=== PATIENT | male | born 1955 | race Caucasian/White ===

== ENCOUNTER 2025-02-22 12:26 | Inpatient (IN) | payer MEDICARE, SELFPAY ==
[2025-02-22] VITALS (8 sets, daily range): BP systolic 108–133; BP diastolic 68–85; PULSE 59–71; RESP 14–18; TEMP 36.2–36.7; O2SAT 95–100; BMI 24.4; BMI 23.8
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
[2025-02-22 13:15] LABS: Absolute Lymphocyte Count 2.36 X10^3/uL (0.83-4.51); Absolute Neutrophil Count 6.4 X10^3/uL (2.0-7.7); Basophil# 0.09 X10^3/uL; Basophil% 0.9 % (0-1); Eosinophil# 0.05 X10^3/uL; Eosinophils% 0.5 % (0-5); Hemoglobin 15.4 g/dL (13.0-16.5); Lymphocyte # 2.36 X10^3/ul (0.83-4.51); Lymphocyte % 24.3 % (19-41); Mean Corp Hgb Conc 34.2 g/dL (32-36); Mean Corpuscular Hgb 31.8 pg (27.0-32.0); Mean Corpuscular Volume 92.8 fL (80-94); Mean Platelet Vol. 11.8 fl (6.2-12.0); Monocyte# 0.83 X10^3/uL; Monocyte% 8.6 % (0-10); NRBC Flagged by Analyzer 0 % (0-5); Neutrophil # 6.35 X10^3/uL (2.7-7.7); Neutrophil % 65.5 % (47-70); Platelet Count 235 K/mm3 (150-450); RBC Distribution Width CV 13.7 % (11.6-14.6); RBC Distribution Width SD 46.7 fl (35.1-43.9); Red Blood Count 4.85 M/mm3 (4.6-6.2); White Blood Count 9.7 K/mm3 (4.4-11.0)
[2025-02-22 13:31] LABS: Prothrombin Time (Protime)PT. 13.2 SECONDS (11.7-14.9)
[2025-02-22 13:33] LABS: ALB/GLOB Ratio 1.7 RATIO (0.9-2.4); AST(SGOT) 19 U/L (<=37); Alanine Aminotransfer ALT/SGPT 16 U/L (<=46); Albumin, Serum 4.2 g/dL (3.4-4.8); Alkaline Phosphatase 54 U/L (40-129); Anion Gap 11 (5-15); BUN 13 mg/dL (4-19); BUN/Creat Ratio 15.6 RATIO (10-20); Carbon Dioxide 25.5 mmol/L (21.0-32.0); Chloride 104 mmol/L (98-108); Creatinine, Serum 0.85 mg/dL (0.70-1.20); EST Glomerular Filtration Rate 95 (>60); Estimated Creatinine Clearance 102.12 ml/min (50-250); Globulin 2.5 g/dL (2.2-4.2); Glucose 93 mg/dL (70-99); Potassium 3.8 mmol/L (3.3-5.1); Protein, Total 6.7 g/dL (5.9-8.4); Sodium Level 140 mmol/L (133-145); Total Bilirubin 0.42 mg/dL (0.00-1.30)
[2025-02-22 13:52] LABS: Amphetamine Urine NEGATIVE (<1000 ng/mL); Barbiturate Urine NEGATIVE (< 200 ng/mL); Benzodiazepine Urine NEGATIVE (< 200 ng/mL); Buprenorphine Urine NEGATIVE (< 200 ng/mL); Cocaine Urine NEGATIVE (< 300 ng/mL); Fentanyl, Urine NEGATIVE; Methadone Urine NEGATIVE (< 300 ng/mL); Opiates Urine NEGATIVE (< 300 ng/mL); Oxycodone, Urine NEGATIVE (< 100 ng/mL); PCP Urine NEGATIVE (< 25 ng/mL); THC Urine PRESUMPTIVE POSITIVE (< 50 ng/mL)
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
[2025-02-22] MEDS: Phenobarbital 32.4 MG Tablet 64.8 MG PO ×3 (15:40→23:24)
[2025-02-22] MEDS: Ensure Plus High Protein 120 ML LIQUID PO (17:04)
[2025-02-22] MEDS: traZODone 100 MG Tablet PO (23:27)
[2025-02-22] MEDS: hydrOXYzine PAM 25 MG Capsule 50 MG PO (23:27)
[2025-02-23 02:50] VITALS: BP 127/77; PULSE 60; RESP 16; TEMP 36.4; O2SAT 98
[2025-02-23] MEDS: Phenobarbital 32.4 MG Tablet 64.8 MG PO ×6 (02:51→23:02)
[2025-02-23] MEDS: 0.9% Saline Lock 10 ML Syringe IV (02:52)
[2025-02-23] MEDS: Levothyroxine 150 MCG Tablet PO (06:39)
[2025-02-23 08:58] VITALS: BP 129/75; PULSE 82; RESP 16; TEMP 36.6; O2SAT 98
[2025-02-23] MEDS: hydrOXYzine PAM 25 MG Capsule 50 MG PO ×3 (08:59→19:12)
[2025-02-23] MEDS: Losartan Potassium 50 MG Tablet PO (09:00)
[2025-02-23] MEDS: Atenolol 25 MG Tablet 75 MG PO (09:00)
[2025-02-23] MEDS: Enoxaparin 40 MG/0.4 ML Syringe SC (09:00)
[2025-02-23] MEDS: Thiamine Hydrochloride 100 MG Tablet PO (09:00)
[2025-02-23] MEDS: Atorvastatin Calcium 40 MG Tablet PO (09:01)
[2025-02-23] MEDS: Venlafaxine XR 75 MG Capsule PO (09:01)
[2025-02-23] MEDS: Venlafaxine XR 37.5 MG Capsule PO (09:01)
[2025-02-23] MEDS: Ezetimibe 10 MG Tablet PO (09:01)
[2025-02-23] MEDS: Folic Acid 1 MG Tablet PO (09:01)
[2025-02-23 11:20] VITALS: BP 144/87; PULSE 55; RESP 16; TEMP 36.6; O2SAT 98
--- NOTE | 2025-02-23 12:15 | ADDICTION ---
This curriculum writer met with PT to conduct ASAM, MSE, AUDIT, DUDIT assessments. PT A+Ox4 and participated actively. All assessments completed and placed in PT's chart. PT reports that plans to f/u with [facility] and AA.
--- NOTE | 2025-02-23 14:14 | PN_ITS ---
Subjective Subjective Patient seen and examined. He had no complaints. He denied any shakes or tremors, palpitations, nausea vomiting or any other symptoms. He denied any other symptoms of acute alcohol withdrawal. Review of systems otherwise negative. He has otherwise remained hemodynamically stable. Objective Data Objective Data Vital Signs: Vital Signs Temp Pulse Resp BP Pulse Ox O2 Del Method 97.8 F 55 L 16 144/87 H 98 Room Air 02/23/25 11:20 02/23/25 11:20 02/23/25 11:20 02/23/25 11:20 02/23/25 11:20 02/23/25 11:20 Oxygen Delivery Method Room Air Weight: 195 lb 15.855 oz Body Mass Index (BMI) 23.8 Intake & Output: Intake and Output for Last 24 Hours 02/21/25 02/22/25 02/23/25 23:59 23:59 23:59 Intake Total 300 / 300 500 / 500 Balance 300 / 300 500 / 500 Lab / Micro Data 02/22/25 13:04 02/22/25 13:04 Physical Exam Const alert, oriented x3, no apparent distress and well nourished General Appearance: cooperative HEENT normocephalic, head/scalp atraumatic, moist oral mucous membranes and oropharynx normal Eyes PERRL and EOMs intact bilaterally Neck no lymphadenopathy and supple Lymph Lymphatic: no lymphedema noted Resp normal respiratory effort, normal air movement and clear to auscultation bilaterally Cardio regular rate, regular rhythm, S1 normal heart sound, S2 normal heart sound and no murmurs GI normal to inspection, nondistended, normoactive bowel sounds, soft to palpation, non-tender and non-distended Extremity normal capillary refill, no clubbing, cyanosis or edema and no calf tenderness General Extremity: no tenderness to palpation of joints or extremities Skin General Skin Exam: no breakdown Neuro no focal motor deficits and no sensory deficits noted Motor Exam: strength 5/5 throughout Psych thought process normal, cooperative and affect normal Appearance: appropriate Assessment & Plan Assessment/Plan (1) Alcohol intoxication: PLAN: Plan #Alcohol use disorder with risk of withdrawal * Currently on alcohol withdrawal protocol with phenobarbital. * On thiamine, folic acid and Multi-Moises. Adjunctive meds for symptomatic relief. * Monitor CIWA score. * #Hypertension: On losartan and atenolol #Hyperlipidemia: Statin #Depression: On venlafaxine #Hypothyroidism: On Synthroid DVT prophylaxis: Lovenox Charges/Coding Visit Charges Inpatient E&M: 47508 Subs Hosp L2
[2025-02-23 15:23] VITALS: BP 116/76; PULSE 65; RESP 16; TEMP 36.9; O2SAT 98
[2025-02-23 20:51] VITALS: BP 130/86; PULSE 61; RESP 16; TEMP 36.8; O2SAT 99
[2025-02-24 02:58] VITALS: BP 148/95; PULSE 63; RESP 16; TEMP 36.6; O2SAT 99
[2025-02-24] MEDS: Phenobarbital 32.4 MG Tablet 64.8 MG PO ×6 (02:58→23:50)
[2025-02-24] MEDS: Levothyroxine 150 MCG Tablet PO (06:37)
[2025-02-24] MEDS: 0.9% Saline Lock 10 ML Syringe IV (06:38)
[2025-02-24 09:11] VITALS: BP 130/70; PULSE 82; RESP 16; TEMP 36.6; O2SAT 100
[2025-02-24] MEDS: Losartan Potassium 50 MG Tablet PO (09:17)
[2025-02-24] MEDS: Atenolol 25 MG Tablet 75 MG PO (09:18)
[2025-02-24] MEDS: Venlafaxine XR 37.5 MG Capsule PO (09:18)
[2025-02-24] MEDS: Venlafaxine XR 75 MG Capsule PO (09:18)
[2025-02-24] MEDS: Ezetimibe 10 MG Tablet PO (09:18)
[2025-02-24] MEDS: Folic Acid 1 MG Tablet PO (09:18)
[2025-02-24] MEDS: Atorvastatin Calcium 40 MG Tablet PO (09:18)
[2025-02-24] MEDS: Enoxaparin 40 MG/0.4 ML Syringe SC (09:19)
[2025-02-24] MEDS: Thiamine Hydrochloride 100 MG Tablet PO (09:19)
--- NOTE | 2025-02-24 11:59 | PCM.PROGNOTE ---
Subjective Subjective Patient seen and examined. He had no complaints and felt well. Review of systems is otherwise negative. He has remained hemodynamically stable. Objective Data Objective Data Vital Signs: Vital Signs Temp Pulse Resp BP Pulse Ox O2 Del Method 97.8 F 82 16 130/70 H 100 Room Air 02/24/25 09:11 02/24/25 09:11 02/24/25 09:11 02/24/25 09:11 02/24/25 09:11 02/24/25 09:11 Oxygen Delivery Method Room Air Weight: 195 lb 15.855 oz Body Mass Index (BMI) 23.8 Intake & Output: Intake and Output for Last 24 Hours 02/22/25 02/23/25 02/24/25 23:59 23:59 23:59 Intake Total 300 / 300 1000 / 1000 400 / 400 Balance 300 / 300 1000 / 1000 400 / 400 Lab / Micro Data 02/22/25 13:04 02/22/25 13:04 Physical Exam Const alert, oriented x3, no apparent distress and well nourished General Appearance: cooperative HEENT normocephalic, head/scalp atraumatic, moist oral mucous membranes and oropharynx normal Eyes PERRL and EOMs intact bilaterally Neck no lymphadenopathy and supple Lymph Lymphatic: no lymphedema noted Resp normal respiratory effort, normal air movement, no retractions, no use of accessory muscles and clear to auscultation bilaterally Cardio regular rate, regular rhythm, S1 normal heart sound, S2 normal heart sound and no murmurs GI normal to inspection, nondistended, normoactive bowel sounds, soft to palpation, non-tender and non-distended Extremity normal to inspection, full ROM, normal capillary refill, no clubbing, cyanosis or edema and no calf tenderness General Extremity: no tenderness to palpation of joints or extremities Skin General Skin Exam: no breakdown Neuro no focal motor deficits and no sensory deficits noted Sensorium / Orientation: awake and alert Motor Exam: strength 5/5 throughout Psych thought process normal, cooperative and affect normal Appearance: appropriate Assessment & Plan Assessment/Plan (1) Alcohol intoxication: PLAN: Plan #Alcohol use disorder with risk of withdrawal Currently on alcohol withdrawal protocol with phenobarbital. On thiamine, folic acid and Multi-Moises. Adjunctive meds for symptomatic relief. Monitor CIWA score. #Hypertension: On losartan and atenolol #Hyperlipidemia: Statin #Depression: On venlafaxine #Hypothyroidism: On Synthroid DVT prophylaxis: Lovenox Disposition: for DC tomorrow Charges/Coding Visit Charges Inpatient E&M: 70652 Subs Hosp L2
[2025-02-24 15:01] VITALS: BP 123/87; PULSE 60; RESP 16; TEMP 36.6; O2SAT 99
[2025-02-24] MEDS: hydrOXYzine PAM 25 MG Capsule 50 MG PO ×3 (15:02→23:50)
[2025-02-24] MEDS: Acetaminophen 325 MG Tablet 650 MG PO (15:20)
[2025-02-24 20:56] VITALS: BP 131/84; PULSE 63; RESP 16; TEMP 36.8; O2SAT 97
[2025-02-25 01:17] VITALS: BP 123/84; PULSE 82; RESP 16; TEMP 37; O2SAT 98
[2025-02-25 05:35] VITALS: BP 113/66; PULSE 62; RESP 16; TEMP 36.9; O2SAT 99
[2025-02-25] MEDS: Levothyroxine 150 MCG Tablet PO (05:36)
[2025-02-25] MEDS: Phenobarbital 32.4 MG Tablet 64.8 MG PO ×2 (05:36→11:07)
[2025-02-25] MEDS: Folic Acid 1 MG Tablet PO (08:20)
[2025-02-25] MEDS: Thiamine Hydrochloride 100 MG Tablet PO (08:20)
[2025-02-25] MEDS: Losartan Potassium 50 MG Tablet PO (08:20)
[2025-02-25] MEDS: Ezetimibe 10 MG Tablet PO (08:20)
[2025-02-25] MEDS: Venlafaxine XR 75 MG Capsule PO (08:20)
[2025-02-25] MEDS: Atenolol 25 MG Tablet 75 MG PO (08:21)
[2025-02-25] MEDS: Enoxaparin 40 MG/0.4 ML Syringe SC (08:21)
[2025-02-25] MEDS: Venlafaxine XR 37.5 MG Capsule PO (08:21)
[2025-02-25] MEDS: Atorvastatin Calcium 40 MG Tablet PO (08:21)
[2025-02-25 08:29] VITALS: BP 135/85; PULSE 55; RESP 16; TEMP 36.3; O2SAT 98
--- NOTE | 2025-02-25 11:48 | DCINST_ITS ---
Discharge Instructions Diet Discharge Diet: Low fat / Low cholesterol DC O2, CPAP, BIPAP needs Home O2 Discharge instructions: No Dressing / Incision Discharge Activity: Return to Normal Activity Weight Bearing Status: Weight bearing as tolerated Dressing / Incision Call your doctor if you observe: Fever of 101 or Higher, Shortness of breath, Dizziness, Swelling in the ankles and Chest pain Follow Up Care Test Results: Test results from this visit will be discussed in further detail at your follow- up appointment, if applicable. Discharge Plan Admission Admit Date/Time: 02/22/25 14:57 Primary Reason for Your Visit: acute alcohol withdrawal Attending Provider: Awilda Singletary Primary Care Provider: Easton Hadley Consulting Providers: Nain Lozada Patient Instructions: Alcoholism Resources, Alcoholism: Getting Help, Alcohol Withdrawal: What to Expect Discharge Orders/Prescriptions Prescriptions: Continued losartan 50 mg tablet 50 mg PO DAILY atorvastatin 40 mg tablet 40 mg PO DAILY venlafaxine 37.5 mg capsule,extended release 24hr 37.5 mg PO DAILY Rx Instructions: takes with 75mg cap venlafaxine 75 mg capsule,extended release 24hr 75 mg PO DAILY Rx Instructions: takes with 37.5mg cap levothyroxine 150 mcg tablet 150 mcg PO DAILY atenolol 50 mg tablet 75 mg PO DAILY ezetimibe 10 mg tablet 10 mg PO DAILY Referrals / Follow Up: Easton Hadley MD [Primary Care Provider] - Within 1 Week Disposition Disposition (needs filled in before D/C Order can be placed): Home, Self Care
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
== END 2025-02-25 12:32 | disposition home or self-care (01) | DRG 897 ==
LOC: ED 13:54 → MS3 15:06
PROVIDERS: Emergency Provider Emergency Medicine; PCP Family Medicine; Visit Provider Student in an Organized Health Care Education/Training Program
DX: F10.229 Alcohol dependence with intoxication, unspecified (principal); E03.9 Hypothyroidism, unspecified; I10 Essential (primary) hypertension; F32.A Depression, unspecified; F10.239 Alcohol dependence with withdrawal, unspecified; E78.5 Hyperlipidemia, unspecified; Y90.6 Blood alcohol level of 120-199 mg/100 ml; Z79.890 Hormone replacement therapy; Z79.899 Other long term (current) drug therapy; Z87.891 Personal history of nicotine dependence
CPT/HCPCS: 80053; 80307; 82077; 85025; 85610; 99284; A4216